=== PATIENT | male | born 1950 | race Caucasian/White ===

== ENCOUNTER → 2017-02-07 | Outpatient (CLI) | payer MEDICARE, OTHER ==
[~2017-02-07] MED LIST: ASCO500T PO; CALCTAB PO; FISH300C PO; GLUC1TAB24 PO; LISI10TA PO; MILK1TAB PO; MULT1TAB39 PO; [UNRECOGNIZED DRUG - CODE] PO
[2017-02-07 11:48] LABS: AUTOMATED NEUTROPHIL # 5.8 TH/MM3 (1.8-7.7); BASOPHIL # 0.1 TH/MM3 (0-0.2); BASOPHIL % 0.7 % (0.0-2.0); EOSINOPHIL # 0.2 TH/MM3 (0-0.4); EOSINOPHIL % 2.5 % (0.0-4.0); HEMATOCRIT 38.7 % (39.0-51.0); HEMO FLAGS DIFF FINAL; LYMPH % 16.9 % (9.0-44.0); LYMPHOCYTE # 1.4 TH/MM3 (1.0-4.8); MEAN CELL VOLUME 108.6 FL (80.0-100.0); MEAN CORPUSCULAR HEMOGLOBIN 35.9 PG (27.0-34.0); MONO % 6.4 % (0.0-8.0); NEUT % 73.5 % (16.0-70.0); PLATELET COUNT 220 TH/MM3 (150-450); RED BLOOD COUNT 3.57 MIL/MM3 (4.50-5.90); RED CELL DISTRIBUTION WIDTH 12.4 % (11.6-17.2)
--- NOTE | 2017-02-07 15:26 | EKG ---
Date Performed: 02/07/2017 Time Performed: 11:48:19 PTAGE: 67 years EKG: Sinus rhythm WITH FIRST DEGREE AV BLOCK MARKED LEFT AXIS DEVIATION CONSIDER LATERAL MYOCARDIAL INFARCTION, AGE IN DETERMINATE ABNORMAL ECG PREVIOUS TRACING : 09/04/2012 22.35 DOCTOR: Ramón Ferro Interpretating Date/Time 02/07/2017 15:25:29
== END ==
LOC: PHPRE 11:00
PROVIDERS: ATTEND Ophthalmology
DX: Z01.810 Encounter for preprocedural cardiovascular examination (principal); H25.89 Other age-related cataract; Z01.812 Encounter for preprocedural laboratory examination
CPT/HCPCS: 36415; 85025; 93005

== ENCOUNTER → 2017-02-21 | Day surgery (SDC) | payer MEDICARE, OTHER ==
--- NOTE | 2017-02-08 17:53 | MH ---
cc: CHIARA ADAMSON MD DATE OF ADMISSION 02/21/2017 ADMISSION DIAGNOSIS Cataract right eye. HISTORY OF PRESENT ILLNESS This 67-year-old white male is coming through [facility] for the purpose of a lens extraction of the right eye with intraocular lens implant under local anesthesia. He has noticed decreasing visual acuity interfering with his daily activities and elected to have a lens extraction with intraocular lens implant on the right eye at this time. His best corrected visual acuity is 20/50 in the right eye and 20/20-2 in the left. PAST MEDICAL HISTORY Hypertension PAST SURGICAL HISTORY Left hip replacement MEDICATIONS Daily include 1. Lisinopril 2. Diuretic 3. Multivitamins, 4. Fish oil. 5. Vitamin C. ALLERGIES No known allergies. SOCIAL HISTORY Does not smoke and drinks a six-pack of alcoholic beverage a week. FAMILY HISTORY Noncontributory. REVIEW OF SYSTEMS: HEAD: Patient denies severe headaches, dizziness or recent head injury. EARS: Patient denies hearing loss, ear pain, discharge or ringing in the ears. NOSE: Patient denies nasal discharge, obstruction or frequent colds. MOUTH AND THROAT: Patient denies soreness of the mouth or tongue, bleeding gums, trouble swallowing, changes in voice or sore throat. NECK: Patient denies neck pain or swelling, limitation of neck movement or neck injury. CARDIOPULMONARY SYSTEM: Patient denies shortness of breath, orthopnea, chronic cough, sputum production, hemoptysis, chest pain, wheezing, palpitations or light-headedness. GI SYSTEM: Patient denies poor appetite, nausea, vomiting, abdominal pain, ulcers, hemorrhoids or change in bowel habits. SYSTEM: The patient denies urinary frequency, dysuria, change in urine color. NERVOUS SYSTEM: Patient denies convulsions, vertigo, stroke, numbness or weakness. PHYSICAL EXAMINATION VITAL SIGNS: Blood pressure is 136/82, pulse 88, respirations 20. HEENT: Head - Normocephalic, atraumatic. Nose without rhinorrhea. Throat clear. NECK: Supple. CHEST: Clear. HEART: Regular rhythm. ABDOMEN: Without tenderness. EXTREMITIES: Without edema. NEUROLOGIC: Within normal limits. PSYCHIATRIC: Within normal limits. OCULAR EXAMINATION The patient's best corrected visual acuity is 20/50 in the right eye and 20/20 -2 in the left. Visual hinds are full to confrontation testing. Extraocular muscle exam reveals full versions with exophoria at distance and near. Pupils are 3 mm equal, round, and reactive to light without afferent defect. Anterior segment examination reveals conjunctival pinguecula, dermatochalasis of the eyelid skin and iris nevi. There are nuclear sclerotic and posterior subcapsular cataract changes present, greater in the right eye than the left. Intraocular pressures 20 in the right eye and 16 in the left by applanation tonometry. Dilated fundus exam revealed sharp disks with cup-to-disk ratio 0.3 bilaterally. The macula is clear. The background is within normal limits. IMPRESSION 1. Bilateral cataracts, right greater than left. 2. Dermatochalasis 3. Pinguecula PLAN Lens extraction of the right eye with intraocular lens implant under local anesthesia through [facility]. Iris retractors will be used in this patient whose pupil does not dilate well. The patient has been cleared medically. He has been counseled as to the risks, benefits and alternatives and elected to proceed. I feel that cataract surgery will improve the quality of life and activities of daily living in this patient. MD TRIXIE Varner/ /3:00 PM /5:39 PM
[~2017-02-21] VITALS: Ht 177.8 cm; Wt 88.0 kg
[~2017-02-21] MED LIST changes: +ACETYLCHOLINE CHL OPHT SOLN 1:100 2 ML VIAL ONE; -CALCTAB PO; +CHLORHEXIDINE GLUCONATE 2 % 1 PACK (2 CLOTHS) TOPICAL PRN; +CYCLOPENTOLATE HCL 1% OPHT SOLN 2 ML BTL ONE; +DICLOFENAC SOD 0.1% OPHT SOLN 2.5 ML BTL ONE; +EPINEPHrine HCL (1:1000) 1 MG/ML VIAL ONE; -FISH300C PO; +GATIFLOXACIN 0.5% OPHT SOLN 2.5 ML BTL ONE; +HYALURONIDASE/LIDOCAINE/BUPIVACAINE 4.5 ML SYR RIGHT EYE ONE; +HYALURONIDASE/LIDOCAINE/BUPIVACAINE 6 ML SYR RIGHT EYE ONE; +INSULIN HUMAN REGULAR 1,000 UNITS/10 ML VIAL SQ PRN; +LACTATED RINGER'S 1000 ML IV PRN; +METOPROLOL TARTRATE 25 MG TAB PO PRN; -MILK1TAB PO; +PHENYLEPHRINE HCL 2.5% OPTH SOLN 2 ML BTL ONE; +PILOCARPINE HCL 2% OPHT SOLN 15 ML BTL ONE; +POVIDONE IODINE 5% (ANTISEPSIS KIT) 4 APPLICATIONS EACH NARE PRN; +PROPARACAINE HCL 0.5% OPHT SOLN 15 ML BTL ONE; +PROPARACAINE HCL 0.5% OPHT SOLN 15 ML BTL RIGHT EYE ONE; +PROPOFOL 200 MG/20 ML AMP ONE; +SODIUM CHLORID 0.9% 500 ML INJ 500 ML IV ONE; +SODIUM CHLORID 0.9% 500 ML IV PRN; +TOBRAMYCIN/DEXAMETHASONE OPTH OINT 3.5 GM TUBE ONE; +TROPICAMIDE 1% OPHT SOLN 15 ML BTL ONE; +VISCOAT OPHT IRRIG SOLN 0.75 ML SYRINGE ONE
[2017-02-21 06:40] VITALS: PULSE 84
[2017-02-21] MEDS: TROPICAMIDE 1% OPHT SOLN 15 ML BTL RIGHT EYE SCH ×4 (06:40→06:49)
[2017-02-21] MEDS: PHENYLEPHRINE HCL 2.5% OPTH SOLN 2 ML BTL RIGHT EYE SCH ×4 (06:40→06:49)
[2017-02-21] MEDS: DICLOFENAC SOD 0.1% OPHT SOLN 2.5 ML BTL RIGHT EYE SCH ×4 (06:40→06:49)
[2017-02-21] MEDS: GATIFLOXACIN 0.5% OPHT SOLN 2.5 ML BTL RIGHT EYE SCH ×4 (06:40→06:49)
[2017-02-21] MEDS: CYCLOPENTOLATE HCL 1% OPHT SOLN 2 ML BTL RIGHT EYE SCH ×4 (06:40→06:49)
[2017-02-21 07:00] VITALS: PULSE 84
[2017-02-21 08:30] VITALS: TEMP 98.4
[2017-02-21 08:45] VITALS: BP 127/75; PULSE 74; RESP 14; O2SAT 98
--- NOTE | 2017-02-21 09:08 | MP ---
cc: CHIARA IRVIN DATE OF SURGERY: 02/21/2017 PREOPERATIVE DIAGNOSIS Cataract, right eye. POSTOPERATIVE DIAGNOSIS Cataract, right eye. OPERATION Extracapsular cataract extraction with posterior chamber intraocular lens implant by phacoemulsification, right eye. SURGEON Chiara Irvin M.D. ANESTHESIA Local. COMPLICATIONS None. INDICATIONS See history and physical previously dictated. OPERATIVE PROCEDURE The patient had adequate retrobulbar and eyelid blocks administered in the holding area and was brought to the operating room. The right eye was prepped and draped in the usual sterile ophthalmic manner. A lid speculum was inserted in the right eye. A 4-0 silk bridle suture was placed through the conjunctiva near the superior rectus muscle and it was tagged to the drape. A fornix-based conjunctival flap was prepared spanning approximately 5 mm in width. Hemostasis was obtained with wet-field cautery. A 3.5 mm groove was made 1 mm from the limbus and dissected up to the limbus in the form of a scleral pocket incision. A stab incision was then made at the 2 o'clock position. Viscoelastic was injected into the anterior chamber. In order to maintain an adequately dilated pupil, it was elected to use iris retractors in this case. Stab incisions were made at the 1 o'clock, 3 o'clock, 5 o'clock, 8 o'clock and 10 o'clock positions. Iris retractors were then inserted through the stab incisions in the peripheral cornea and positioned to enlarge the size of the pupil. The anterior chamber was entered with a 3.0 mm keratome through the scleral pocket incision. A 360 degree continuous curvilinear capsulorrhexis was then performed. Hydrodissection was utilized to divide the nucleus into inner and outer components and to separate the cortex from the capsule. Phacoemulsification was then utilized to remove the nucleus. The outer nuclear layer was removed with irrigation and aspiration and short bursts of ultrasound as necessary. The cortex was removed with the irrigation-aspiration handpiece. The posterior capsule was polished with the capsule polisher. Viscoelastic was injected into the capsular bag. The intraocular lens was inspected and found to be in good condition. The lens utilized was an Darrion, model SA60AT with a power of +18.5 diopters. The lens was inserted into the capsular bag. The five iris retractors were removed. The viscoelastic in the anterior chamber was then removed with the irrigation-aspiration hand piece. Viscoelastic was also removed from beneath the intraocular lens. The anterior chamber was filled with Miochol-E through the stab incision and pressurized. The wound was checked for leaks at this pressure and normalized pressure and there were none. The 4-0 bridle suture was removed. The conjunctival flap was brought down over the wound and secured with cautery. Pilocarpine 2% eye drops were instilled topically. The lid speculum was removed. TobraDex ophthalmic ointment was applied. The eye was double patched and shielded. The patient tolerated the procedure well and left the Operating Room in satisfactory condition. MD TRIXIE Varner/ANGUS /8:36 AM /8:58 AM
== END | disposition home or self-care (01) ==
LOC: PHSDC 06:09
PROVIDERS: ATTEND Ophthalmology
DX: H26.9 Unspecified cataract (principal); H02.839 Dermatochalasis of unspecified eye, unspecified eyelid; I10 Essential (primary) hypertension; Z96.642 Presence of left artificial hip joint
CPT/HCPCS: 00142; 66984; J0171; J7040; V2632